=== PATIENT | female | born 1955 | race Caucasian/White ===

== ENCOUNTER 2022-11-07 17:48 | Emergency (ER) | payer OTHER, SELFPAY ==
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
--- NOTE | 2022-11-07 17:54 | ECG_ITS ---
Measurements Intervals [place] Rate: 77 P: 53 ND: 176 QRS: 29 QRSD: 92 T: 63 QT: 352 QTc: 399 Interpretive Statements SINUS RHYTHM NORMAL ECG NO PREVIOUS ECG AVAILABLE FOR COMPARISON Electronically Signed On 11-07-2022 20:24:44 CDT by Ray Henderson D.O.
[2022-11-07 18:24] VITALS: BP 113/90; PULSE 90; RESP 16; TEMP 36.8; O2SAT 100
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
[2022-11-07 20:45] VITALS: BP 156/81; PULSE 94; RESP 18; TEMP 36.6; O2SAT 98
--- NOTE | 2022-11-07 21:03 | PC.NURSE ---
report called to GUILLE Olson at [facility] ER. patient transported via [facility]
== END 2022-11-07 21:07 | disposition short-term general hospital (02) ==
PROVIDERS: Emergency Provider Emergency Medicine
DX: S39.91XA Unspecified injury of abdomen, initial encounter (principal); E03.9 Hypothyroidism, unspecified; E78.5 Hyperlipidemia, unspecified; Z79.82 Long term (current) use of aspirin; S52.572A Other intraarticular fracture of lower end of left radius, initial encounter for closed fracture; M85.88 Other specified disorders of bone density and structure, other site; M18.9 Osteoarthritis of first carpometacarpal joint, unspecified; V53.5XXA Driver of pick-up truck or van injured in collision with car, pick-up truck or van in traffic accident, initial encounter
CPT/HCPCS: 71046; 71110; 73110; 73610; 93005; 99285